=== PATIENT | female | born 1960 | race Caucasian/White ===

== ENCOUNTER → 2017-03-13 | Outpatient (CLI) | payer OTHER ==
--- NOTE | 2017-03-13 11:05 | USB ---
Reason for exam: follow-up at short interval from prior study. History: Benign US breast needle core LT of the left breast, May 10, 2016. Implants in both breasts, 1994. Physical Findings: Nurse did not find any significant physical abnormalities on exam. US Breast BILAT Right breast ultrasound includes all four quadrants, the retroareolar region and axilla. Finding demonstrate ductal ectasia. Left breast ultrasound includes all four quadrants, the retroareolar region and axilla. Finding demonstrate ductal ecstasia, a 0.3 x 0.2 x 0.1cm oval, too small to characterize lesion at 1 o'clock, a 0.3 x 0.4 x 0.1cm oval, cluster, too small to characterize lesion at 1 o'clock, a 0.7 x 0.7 x 0.2 oval duct ectasia at 10 o'clock, and a 0.2 x 0.3 x 0.2cm round, solid, hyperechoic lesion with ductal ecstasia at posterior nipple at 9 o'clock, corresponds to previous. Stable exam. These results were verbally communicated with the patient and result sheet given to the patient on 03/13/17. ASSESSMENT: Benign, BI-RAD 2 RECOMMENDATION: Return to routine screening mammogram schedule for both breasts. Back on schedule.
== END | disposition home or self-care (01) ==
LOC: RADUSWWP 09:28
PROVIDERS: ATTEND Family Medicine
DX: R92.8 Other abnormal and inconclusive findings on diagnostic imaging of breast (principal); N64.52 Nipple discharge

== ENCOUNTER → 2018-06-27 | Outpatient (CLI) | payer OTHER ==
--- NOTE | 2018-06-30 10:16 | MM ---
Reason for exam: screening (asymptomatic). Last mammogram was performed 2 years and 2 months ago. History: Patient is postmenopausal and history of other cancer. Benign US breast needle core LT of the left breast, May 10, 2016. Implants in both breasts, 1994. Physical Findings: A clinical breast exam by your physician is recommended on an annual basis and results should be correlated with mammographic findings. MG Screening Mammo Implant/CAD Bilateral CC, MLO, and ID view(s) were taken. Prior study comparison: May 10, 2016, left breast MG diag mamm implant LT w CAD. April 13, 2016, bilateral MG screening mammo implant/CAD. The breast tissue is heterogeneously dense. This may lower the sensitivity of mammography. Previous mammotome biopsy in the left breast. Bilateral implants. ASSESSMENT: Benign, BI-RAD 2 RECOMMENDATION: Routine screening mammogram of both breasts in 1 year.
== END | disposition home or self-care (01) ==
LOC: RADUSWWP 14:47
PROVIDERS: ATTEND Family Medicine
DX: Z12.31 Encounter for screening mammogram for malignant neoplasm of breast (principal)
CPT/HCPCS: 77067